=== PATIENT | male | born 1960 | race Caucasian/White ===

== ENCOUNTER → 2019-01-22 07:39 | Outpatient (CLI) | payer BC, SELFPAY ==
--- NOTE | 2019-01-22 07:47 | CT_ITS ---
CT chest wo con HISTORY: Obstructive sleep apnea, chest pain, syncope, abnormal EKG, wheezing ITS.REASON: WHEEZING ORDERING PHYSICIAN: Topher Wright PATIENT AGE: 58 years COMPARISON: None Technique: Axial images were obtained. Sagittal, and coronal reformatted images are also generated and reviewed. All CT scans at the facility use one or more dose reduction, viz: automated exposure control, ma/kV adjustment per patient size (including targeted exams where dose is matched to indication, i.e. head), or iterative reconstruction technique. FINDINGS: HEART: Unremarkable. Normal heart size. No significant pericardial effusion. Mild coronary artery calcification MEDIASTINAL AND HILAR STRUCTURES. 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 No dominant adenopathy. PULMONARY ARTERIES: Normal size. AORTA: No evidence of aortic aneurysm LUNGS: 5 mm noncalcified nodule present in the right minor fissure. The margins are somewhat irregular. Minimal atelectatic fibrotic changes right lung base PLEURAL SPACES: No significant effusion. No evidence of pneumothorax. BONY STRUCTURES: No acute bony abnormalities apparent. Degenerative changes thoracic spine with ankylosis LYMPH NODES: No enlarged lymph nodes evident UPPER ABDOMEN: Cholelithiasis. Mildly distended gallbladder ADDITIONAL FINDINGS: No other significant abnormalities IMPRESSION: 1. No acute abdominal or pelvic findings. 2. 5 mm atypical fissural nodule in the right minor fissure. Consider 6 month follow-up
== END ==
PROVIDERS: PCP Family Medicine; Visit Provider Orthopaedic Surgery Adult Reconstructive Orthopaedic Surgery
DX: R06.2 Wheezing (principal); R06.02 Shortness of breath; R07.2 Precordial pain; R55 Syncope and collapse; R94.31 Abnormal electrocardiogram [ECG] [EKG]; G47.33 Obstructive sleep apnea (adult) (pediatric)
CPT/HCPCS: 71250

== ENCOUNTER → 2019-01-22 09:59 | Outpatient (POV) | payer BC, SELFPAY | PROVIDERS: Visit Provider Dentist | DX: Z00.00 Encounter for general adult medical examination without abnormal findings (principal) ==

== ENCOUNTER 2024-04-10 10:28 | Outpatient (CLI) | payer MEDICARE, SELFPAY ==
--- NOTE | 2024-04-10 | CA_ITS ---
APPROVED REPORT EXAM: Comprehensive 2D, Doppler, and color-flow Echocardiogram Demurrage Clerk: Moriah Moe RT(R) Ht: 6 ft 0 in Wt: 264lbs BSA: 2.40 BP: 120/84 mmHg Indications: CHF, COPD, murmur, fatigue, HTN, DM, AHUMADA, hyperlipidemia, AFIB, rt sided chest pain, CAD, hx PR, hx of cardioversion for AFIB Echo Enhancing Agent Indication: Endocardial border delineation Agent(s) / Amount(s) Used: Definity 2 cc 2D Dimensions LA Volume 24.10 mL LA Volume Index 10.04 mL/m2 (M/F) 16-34 EF AP4 36.10 % GL Strain -13.7 % M-Mode Dimensions RVDd 3.05 cm (0.9-2.6) LA Diam 4.00 cm (1.9-4.0) LVDd 5.04 cm (3.5-5.7) LVDs 3.81 cm (3.5-5.7) IVSd 0.89 cm (0.6-1.1) PWd 0.85 cm (0.6-1.1) EF (Teich) 48.30% FS 24.40% EDV (Teich) 120.50 mL ESV (Teich) 62.30 mL LV Diastology E Decel Time 167 (160-240 msec) E/A Ratio 0.8 Aortic Valve SAKINA Index 1.51 cm2/m2 AoV Peak All. 92.0 (50-130 cm/s) AO Peak GR. 3.40 mmHg AO Mean GR. 1.70 (<5 mmHg) AO VTI 16.7 (18-25 cm) SAKINA (VTI) 3.72 (2.5-4.5 cm2) Mitral Valve MV E Max All. 48.0 (40-130 cm/s) MV A Velocity 62.0 (40-130 cm/s) E/A Ratio 0.78 MV PHT 49.0 ms Tricuspid Valve TR P. Velocity 150.00 cm/s Left Ventricle The left ventricle is normal size. Left ventricular systolic function is mild to moderately decreased. There is increased LV wall thickness. There is severe hypokinesis of the anterior and anterolateral LV chakraborty, as well as the LV apex. The septum is asynchronous. Grade 1 diastolic dysfunction is present. No left ventricle thrombus noted on this study. LVEF is 40%. Right Ventricle Right ventricle is mild to moderately dilated. The right ventricular systolic function is normal. Atria Left atrium is mildly dilated. Right atrium is mildly dilated. There is no Doppler evidence of interatrial shunt. Aortic Valve The aortic valve is mildly thickened. There is no aortic valvular stenosis. Mild aortic regurgitation. Mitral Valve The mitral valve leaflets are mildly thickened. No evidence of mitral valve stenosis. Trace mitral regurgitation. Tricuspid Valve Tricuspid valve is grossly normal in structure and function. Trace tricuspid regurgitation. There is insufficient TR jet to estimate RVSP. Pulmonic Valve The pulmonary valve is normal in structure. Trace pulmonic regurgitation. Great Vessels The aortic root is normal in size. IVC is normal in size and collapses >50% with inspiration. Pericardium There is no pericardial effusion. Other Information Study Quality: Fair Conclusion Mild to moderate reduction in LV systolic function (LVEF 40%). Severe hypokinesis of the anterior and anterolateral LV chakraborty, as well as the LV apex. The septum is asynchronous. Mild to moderate RV dilation with normal RV function. Biatrial dilation. Mild AI. Electronically signed by : Sobia Jefferson MD 04/19/2024 01:10:43
[2024-04-10] MEDS: DEFINITY US ECHO CONTRAST 2ML INJ 2 MG IV (11:41)
== END 2024-04-10 23:59 | disposition home or self-care (01) ==
LOC: RT 10:34
PROVIDERS: PCP Family Medicine; Visit Provider Nurse Practitioner Family
DX: Z01.818 Encounter for other preprocedural examination (principal); I51.7 Cardiomegaly; I50.22 Chronic systolic (congestive) heart failure; I48.0 Paroxysmal atrial fibrillation
CPT/HCPCS: 93306; Q9957